=== PATIENT | male | born 1980 | race Caucasian/White ===

== ENCOUNTER 2019-05-09 00:19 | Inpatient (IN) | payer MEDICAID, OTHER ==
[~2019-05-09] VITALS: Ht 172.7 cm; Wt 69.2 kg
[~2019-05-09 00:19] MED LIST: PALI6 PO
[2019-05-09 03:06] LABS: ANION GAP 13 mmol/L (8-16); CALCIUM, TOTAL 9.7 mg/dL (8.8-10.5); CARBON DIOXIDE 25 mmol/L (22-29); CHLORIDE 102 mmol/L (98-107); CREATININE 1.11 mg/dL (0.60-1.30); GLOMERULAR FILTR. RATE CALC > 60 mL/min (>60); GLUCOSE,RANDOM 88 mg/dL (70-110); POTASSIUM 4.1 mmol/L (3.5-5.1); SODIUM SERUM 140 mmol/L (136-145); UREA NITROGEN, BLOOD 15 mg/dL (7-18)
[2019-05-09 03:08] LABS: BASOPHILS % (AUTO) 0.5 % (0.0-2.0); EOSINOPHILS % (AUTO) 1.1 % (1.0-6.0); HEMATOCRIT 47.5 % (41-53); HEMOGLOBIN 15.9 g/dL (13.5-17.5); LYMPHOCYTES # (AUTO) 2.1 K/uL (1.0-4.8); LYMPHOCYTES % (AUTO) 21.3 % (22.0-44.0); MEAN CORPUSCULAR HEMOGLOBIN 29.7 pg (26.0-34.0); MEAN CORPUSCULAR HGB CONC 33.4 G/dL (31.0-37.0); MEAN CORPUSCULAR VOLUME 89 fL (80-100); MONOCYTES # (AUTO) 1.2 K/uL (0.1-1.0); MONOCYTES % (AUTO) 11.8 % (2.0-9.0); NEUTROPHILS # (AUTO) 6.5 K/uL (1.8-7.7); NEUTROPHILS % (AUTO) 65.3 % (40.0-70.0); PLATELET COUNT (AUTO) 263 K/uL (150-450); RED BLOOD CELL COUNT(AUTO) 5.35 MIL/uL (4.50-5.90); RED CELL DISTRIBUTION WIDTH 13.7 % (11.5-14.5)
[2019-05-09 03:12] LABS: ALANINE AMINOTRANSFERASE 73 U/L (12-78); ALBUMIN 4.5 g/dL (3.4-5.0); ALKALINE PHOSPHATASE 115 U/L (46-116); ASPARTATE AMINOTRANSFERASE 59 U/L (15-37); TOTAL PROTEIN, SERUM 8.3 g/dL (6.4-8.2)
[2019-05-09] MEDS ORDERED: LORazepam 2 MG TABLET PO ONE (04:00)
[2019-05-09] MEDS ORDERED: DiphenhydrAMINE HCL 50 MG CAPSULE PO ONE (04:00)
[2019-05-09] MEDS ORDERED: HALOPERIDOL 5 MG TABLET PO ONE (04:00)
[2019-05-09 05:08] LABS: AMPHET/METH SCREEN,URINE POSITIVE (NEGATIVE); BARBITURATE SCREEN, URINE NEGATIVE (NEGATIVE); BENZODIAZEPINES SCREEN,URINE NEGATIVE (NEGATIVE); CANNABINOID SCREEN,URINE NEGATIVE (NEGATIVE); COCAINE SCREEN,URINE NEGATIVE (NEGATIVE); METHADONE SCREEN, URINE NEGATIVE (NEGATIVE); OPIATE SCREEN,URINE NEGATIVE (NEGATIVE); PHENCYCLIDINE SCREEN,URINE NEGATIVE (NEGATIVE)
[2019-05-09] MEDS: RisperiDONE 1 MG TABLET PO SCH ×2 (10:28→16:53)
[2019-05-09] MEDS ORDERED: PNEUMOCOCCAL VACCINE POLYVALENT 0.5 ML VIAL [PPSV23] IM ONE (11:15)
[2019-05-09 11:16] VITALS: BP 132/67
[2019-05-09 16:21] VITALS: BP 130/82
[2019-05-09] MEDS: LORazepam 2 MG TABLET PO PRN (20:16)
[2019-05-09] MEDS ORDERED: MAG HYDROX/AL HYDROX/SIMETH ES 30 ML SUSPENSION UDCUP PO PRN (22:30)
[2019-05-09] MEDS ORDERED: BACITRACIN 28.4 GM OINTMENT TP PRN (22:30)
[2019-05-09] MEDS ORDERED: BENZOCAINE/MENTHOL LOZENGE MM PRN (22:30)
[2019-05-09] MEDS ORDERED: ALBUTEROL SULFATE HFA 90 MCG/PUFF 8 GM INHALER IH PRN (22:30)
[2019-05-09] MEDS ORDERED: LOPERAMIDE HCL 2 MG CAPSULE PO PRN (22:30)
[2019-05-09] MEDS ORDERED: PETROLATUM,WHITE 28 GM JELLY TP PRN (22:30)
[2019-05-09] MEDS ORDERED: ONDANSETRON HCL 4 MG TABLET PO PRN (22:30)
[2019-05-09] MEDS ORDERED: ACETAMINOPHEN 325 MG TABLET PO PRN (22:30)
[2019-05-09] MEDS ORDERED: OMEPRAZOLE 20 MG CAPSULE PO PRN (22:30)
[2019-05-09] MEDS ORDERED: IBUPROFEN 600 MG TABLET PO PRN (22:30)
[2019-05-09] MEDS ORDERED: DOCUSATE SODIUM 100 MG CAPSULE PO PRN (22:30)
[2019-05-09] MEDS ORDERED: CloNIDine HCL 0.1 MG TABLET PO PRN (22:30)
[2019-05-09] MEDS ORDERED: MAGNESIUM HYDROXIDE SUSPENSION 30 ML UDCUP PO PRN (22:30)
[2019-05-10 01:14] VITALS: BP 112/84
[2019-05-10] MEDS: HALOPERIDOL 5 MG TABLET PO PRN ×2 (01:18→23:55)
[2019-05-10] MEDS: ZOLPIDEM TARTRATE 10 MG TABLET PO PRN ×2 (01:18→21:01)
[2019-05-10 08:13] VITALS: BP 135/92
[2019-05-10] MEDS: RisperiDONE 1 MG TABLET PO SCH ×2 (08:25→16:25)
[2019-05-10] MEDS: NICOTINE 21 MG/24 HOUR PATCH TD SCH (08:30)
[2019-05-10 08:54] LABS: CHOL/HDL RATIO 2.5 (4.2-7.3)
[2019-05-10] MEDS: LORazepam 2 MG TABLET PO PRN ×2 (09:16→15:08)
[2019-05-10 16:08] VITALS: BP 130/87
[2019-05-11 00:13] VITALS: BP 147/89
[2019-05-11 08:06] VITALS: BP 137/85
[2019-05-11] MEDS: RisperiDONE 1 MG TABLET PO SCH ×2 (08:18→16:37)
[2019-05-11] MEDS: NICOTINE 21 MG/24 HOUR PATCH TD SCH (08:22)
[2019-05-11] MEDS: LORazepam 2 MG TABLET PO PRN ×2 (09:36→14:43)
[2019-05-11 16:50] VITALS: BP 135/83
[2019-05-11] MEDS: ZOLPIDEM TARTRATE 10 MG TABLET PO PRN (20:46)
[2019-05-12] MEDS: HALOPERIDOL 5 MG TABLET PO PRN (00:14)
[2019-05-12 01:51] VITALS: BP 149/85
[2019-05-12 08:19] VITALS: BP 140/99
[2019-05-12] MEDS: RisperiDONE 1 MG TABLET PO SCH (08:23)
[2019-05-12] MEDS: LORazepam 2 MG TABLET PO PRN (08:23)
[2019-05-12] MEDS: NICOTINE 21 MG/24 HOUR PATCH TD SCH (08:28)
[2019-05-12] MEDS ORDERED: RISP2TAB76 PO (10:29)
[2019-05-12 12:00] VITALS: BP 111/73
== END 2019-05-12 13:15 | disposition home or self-care (01) | DRG 750 ==
LOC: EMS 00:19 → B2S 08:14
PROVIDERS: ADMIT Psychiatry & Neurology Psychiatry; ATTEND Psychiatry & Neurology Psychiatry
DX: F20.0 Paranoid schizophrenia (principal); R45.851 Suicidal ideations; Z59.0 Homelessness; F17.210 Nicotine dependence, cigarettes, uncomplicated; G47.00 Insomnia, unspecified; K59.00 Constipation, unspecified; F31.9 Bipolar disorder, unspecified; F41.9 Anxiety disorder, unspecified; Z91.5 Personal history of self-harm; Z56.0 Unemployment, unspecified
CPT/HCPCS: 99406; G0480

== ENCOUNTER 2019-07-13 20:38 | Inpatient (IN) | payer MEDICAID, OTHER ==
[~2019-07-13] VITALS: Ht 172.7 cm; Wt 63.5 kg
[~2019-07-13 20:38] MED LIST changes: -PALI6 PO; +RISP2TAB76 PO
[2019-07-13] MEDS ORDERED: PALI39DI IM (20:49)
[2019-07-13 21:24] LABS: HEMATOCRIT 52.2 % (41-53); HEMOGLOBIN 17.5 g/dL (13.5-17.5); MEAN CORPUSCULAR HEMOGLOBIN 30.1 pg (26.0-34.0); MEAN CORPUSCULAR HGB CONC 33.5 G/dL (31.0-37.0); MEAN CORPUSCULAR VOLUME 90 fL (80-100); PLATELET COUNT (AUTO) 163 K/uL (150-450); RED BLOOD CELL COUNT(AUTO) 5.81 MIL/uL (4.50-5.90)
[2019-07-13 21:35] LABS: ANION GAP 9 mmol/L (8-16); CALCIUM, TOTAL 9.5 mg/dL (8.8-10.5); CARBON DIOXIDE 29 mmol/L (22-29); CHLORIDE 99 mmol/L (98-107); CREATININE 0.83 mg/dL (0.60-1.30); GLOMERULAR FILTR. RATE CALC > 60 mL/min (>60); GLUCOSE,RANDOM 83 mg/dL (70-110); POTASSIUM 3.4 mmol/L (3.5-5.1); SODIUM SERUM 137 mmol/L (136-145); UREA NITROGEN, BLOOD 7 mg/dL (7-18)
[2019-07-13 21:40] LABS: AMPHET/METH SCREEN,URINE NEGATIVE (NEGATIVE); BARBITURATE SCREEN, URINE NEGATIVE (NEGATIVE); BENZODIAZEPINES SCREEN,URINE NEGATIVE (NEGATIVE); CANNABINOID SCREEN,URINE POSITIVE (NEGATIVE); COCAINE SCREEN,URINE NEGATIVE (NEGATIVE); METHADONE SCREEN, URINE NEGATIVE (NEGATIVE); OPIATE SCREEN,URINE NEGATIVE (NEGATIVE); PHENCYCLIDINE SCREEN,URINE NEGATIVE (NEGATIVE)
[2019-07-13 21:42] LABS: ALANINE AMINOTRANSFERASE 32 U/L (12-78); ALBUMIN 4.7 g/dL (3.4-5.0); ALKALINE PHOSPHATASE 167 U/L (46-116); ASPARTATE AMINOTRANSFERASE 39 U/L (15-37); BILIRUBIN,TOTAL 0.8 mg/dL (0.1-1.0); TOTAL PROTEIN, SERUM 8.3 g/dL (6.4-8.2)
[2019-07-13 22:16] LABS: BAND NEUTROPHILS % (MANUAL) 0 % (0-5)
[2019-07-13 22:17] LABS: BASOPHILS % (MANUAL) 2 % (0-2); EOSINOPHILS % (MANUAL) 13 % (1-6); LYMPHOCYTES % (MANUAL) 33 % (22-44); MONOCYTES % (MANUAL) 8 % (2-9); SEGMENTED NEUTROPHILS % 44 % (40-70)
[2019-07-14] MEDS ORDERED: HALOPERIDOL 5 MG TABLET PO ONE (00:15)
[2019-07-14] MEDS ORDERED: HALOPERIDOL 5 MG TABLET PO PRN (05:00)
[2019-07-14] MEDS ORDERED: 0.9% SODIUM CHLORIDE 10 ML SYRINGE IVP PRN (06:00)
[2019-07-14] MEDS ORDERED: ACETAMINOPHEN 325 MG TABLET PO PRN ×2 (06:00→08:45)
[2019-07-14] MEDS ORDERED: IBUPROFEN 600 MG TABLET PO PRN (08:45)
[2019-07-14] MEDS ORDERED: OMEPRAZOLE 20 MG CAPSULE PO PRN (08:45)
[2019-07-14] MEDS ORDERED: DOCUSATE SODIUM 100 MG CAPSULE PO PRN (08:45)
[2019-07-14] MEDS ORDERED: BENZOCAINE/MENTHOL LOZENGE MM PRN (08:45)
[2019-07-14] MEDS ORDERED: POTASSIUM CHLORIDE 20 MEQ ER TABLET PO ONE (08:45)
[2019-07-14] MEDS ORDERED: BACITRACIN 28.4 GM OINTMENT TP PRN (08:45)
[2019-07-14] MEDS ORDERED: ALBUTEROL SULFATE HFA 90 MCG/PUFF 8 GM INHALER IH PRN (08:45)
[2019-07-14] MEDS ORDERED: MAG HYDROX/AL HYDROX/SIMETH ES 30 ML SUSPENSION UDCUP PO PRN (08:45)
[2019-07-14] MEDS ORDERED: LOPERAMIDE HCL 2 MG CAPSULE PO PRN (08:45)
[2019-07-14] MEDS ORDERED: MAGNESIUM HYDROXIDE SUSPENSION 30 ML UDCUP PO PRN (08:45)
[2019-07-14] MEDS ORDERED: CloNIDine HCL 0.1 MG TABLET PO PRN (08:45)
[2019-07-14] MEDS ORDERED: ONDANSETRON HCL 4 MG TABLET PO PRN (08:45)
[2019-07-14] MEDS ORDERED: PETROLATUM,WHITE 28 GM JELLY TP PRN (08:45)
[2019-07-14 10:27] VITALS: BP 147/98
[2019-07-14 10:29] VITALS: BP 147/98
[2019-07-14] MEDS: LISINOPRIL 20 MG TABLET PO SCH (10:51)
[2019-07-14] MEDS: RisperiDONE 1 MG TABLET PO SCH ×2 (12:21→20:22)
[2019-07-14 16:36] VITALS: BP 108/60
[2019-07-15 00:54] VITALS: BP 121/62
[2019-07-15 07:53] LABS: ANION GAP 10 mmol/L (8-16); CALCIUM, TOTAL 8.9 mg/dL (8.8-10.5); CARBON DIOXIDE 26 mmol/L (22-29); CHLORIDE 103 mmol/L (98-107); CHOLESTEROL 119 mg/dL (131-200); CREATININE 0.92 mg/dL (0.60-1.30); GLOMERULAR FILTR. RATE CALC > 60 mL/min (>60); GLUCOSE,RANDOM 91 mg/dL (70-110); HDL CHOLESTEROL 60 mg/dL (40-60); LDL CHOL (CALC.) 47 mg/dL (0-130); POTASSIUM 3.8 mmol/L (3.5-5.1); SODIUM SERUM 139 mmol/L (136-145); THYROID STIMULATING HORMONE 1.79 uIU/mL (0.36-3.74); TRIGLYCERIDES 59 mg/dL (15-150); UREA NITROGEN, BLOOD 12 mg/dL (7-18)
[2019-07-15 08:11] VITALS: BP 115/60
[2019-07-15] MEDS: RisperiDONE 1 MG TABLET PO SCH ×2 (08:20→20:14)
[2019-07-15] MEDS: LISINOPRIL 20 MG TABLET PO SCH (08:20)
[2019-07-15 08:51] VITALS: BP 116/68
[2019-07-15] MEDS: LORazepam 2 MG TABLET PO PRN (14:59)
[2019-07-15 16:06] VITALS: BP 109/76
[2019-07-16 02:56] VITALS: BP 110/68
[2019-07-16] MEDS: LORazepam 2 MG TABLET PO PRN ×2 (02:59→09:36)
[2019-07-16 08:17] VITALS: BP 123/81
[2019-07-16] MEDS: RisperiDONE 1 MG TABLET PO SCH ×2 (08:47→20:05)
[2019-07-16] MEDS: LISINOPRIL 20 MG TABLET PO SCH (08:47)
[2019-07-16 16:04] VITALS: BP 111/69
[2019-07-16] MEDS: ZOLPIDEM TARTRATE 10 MG TABLET PO PRN (20:54)
[2019-07-17 00:50] VITALS: BP 120/81
[2019-07-17] MEDS: LORazepam 2 MG TABLET PO PRN ×2 (00:51→19:01)
[2019-07-17 08:21] VITALS: BP 126/79
[2019-07-17] MEDS: LISINOPRIL 20 MG TABLET PO SCH (08:36)
[2019-07-17] MEDS: RisperiDONE 1 MG TABLET PO SCH ×2 (08:36→20:07)
[2019-07-17 16:01] VITALS: BP 112/70
[2019-07-18 00:09] VITALS: BP 118/83
[2019-07-18] MEDS: LISINOPRIL 20 MG TABLET PO SCH (08:30)
[2019-07-18] MEDS: RisperiDONE 1 MG TABLET PO SCH (08:30)
[2019-07-18 08:31] VITALS: BP 129/62
[2019-07-18] MEDS: LORazepam 2 MG TABLET PO PRN (13:35)
[2019-07-18 16:19] VITALS: BP 109/70
[2019-07-18] MEDS: RisperiDONE 2 MG TABLET PO SCH (20:04)
[2019-07-18] MEDS: ZOLPIDEM TARTRATE 10 MG TABLET PO PRN (21:35)
[2019-07-19 03:51] VITALS: BP 115/69
[2019-07-19 08:21] VITALS: BP 102/57
[2019-07-19] MEDS: LISINOPRIL 20 MG TABLET PO SCH (09:00)
[2019-07-19] MEDS: RisperiDONE 2 MG TABLET PO SCH ×2 (09:44→20:30)
[2019-07-19] MEDS: BuPROPion HCL XL 150 MG ER TABLET PO SCH (12:20)
[2019-07-19] MEDS: LORazepam 2 MG TABLET PO PRN ×2 (12:26→18:03)
[2019-07-19 16:05] VITALS: BP 105/61
[2019-07-20 01:21] VITALS: BP 119/69
[2019-07-20 08:10] VITALS: BP_SYST 101; BP_SYST 127; BP_DIAS 52; BP_DIAS 83
[2019-07-20] MEDS: RisperiDONE 2 MG TABLET PO SCH (09:55)
[2019-07-20] MEDS: LISINOPRIL 20 MG TABLET PO SCH (09:55)
[2019-07-20] MEDS: BuPROPion HCL XL 150 MG ER TABLET PO SCH (09:55)
[2019-07-20 16:03] VITALS: BP 100/53
[2019-07-20] MEDS: LORazepam 2 MG TABLET PO PRN (16:53)
[2019-07-20] MEDS: RisperiDONE 3 MG TABLET PO SCH (20:18)
[2019-07-20] MEDS: ZOLPIDEM TARTRATE 10 MG TABLET PO PRN (22:43)
[2019-07-21 00:24] VITALS: BP 121/86
[2019-07-21 08:08] VITALS: BP 103/66
[2019-07-21] MEDS: BuPROPion HCL XL 150 MG ER TABLET PO SCH (08:28)
[2019-07-21] MEDS: LISINOPRIL 20 MG TABLET PO SCH (08:28)
[2019-07-21] MEDS: RisperiDONE 3 MG TABLET PO SCH ×2 (08:28→20:15)
[2019-07-21] MEDS: LORazepam 2 MG TABLET PO PRN ×3 (11:50→22:33)
[2019-07-21 16:12] VITALS: BP 100/60
[2019-07-21] MEDS: ZOLPIDEM TARTRATE 10 MG TABLET PO PRN (20:17)
[2019-07-22 06:34] VITALS: BP 105/67
[2019-07-22 08:16] VITALS: BP 105/65
[2019-07-22] MEDS: RisperiDONE 3 MG TABLET PO SCH (08:26)
[2019-07-22] MEDS: LISINOPRIL 20 MG TABLET PO SCH (08:26)
[2019-07-22] MEDS: BuPROPion HCL XL 150 MG ER TABLET PO SCH (08:26)
[2019-07-22] MEDS ORDERED: FOLIC ACID 1 MG TABLET PO SCH (09:00)
[2019-07-22] MEDS ORDERED: MULTIVITAMINS WITH MINERALS, THERAPEUTIC TABLET PO SCH (09:00)
[2019-07-22] MEDS ORDERED: THIAMINE HCL 100 MG TABLET PO SCH (09:00)
[2019-07-22] MEDS: LORazepam 2 MG TABLET PO PRN (09:51)
[2019-07-22] MEDS ORDERED: RISP3 PO (12:57)
[2019-07-22] MEDS ORDERED: BUPR-93 PO (12:57)
[2019-07-22] MEDS ORDERED: LISI-662 PO (12:57)
== END 2019-07-22 13:20 | disposition home or self-care (01) | DRG 750 ==
LOC: EMS 20:39 → B2S 07-14 08:03
PROVIDERS: ATTEND Psychiatry & Neurology Psychiatry
DX: F25.1 Schizoaffective disorder, depressive type (principal); R45.851 Suicidal ideations; Z59.0 Homelessness; F12.10 Cannabis abuse, uncomplicated; F19.10 Other psychoactive substance abuse, uncomplicated; F10.10 Alcohol abuse, uncomplicated; F41.9 Anxiety disorder, unspecified; E87.6 Hypokalemia; G47.00 Insomnia, unspecified; K59.00 Constipation, unspecified; Z71.41 Alcohol abuse counseling and surveillance of alcoholic; Z71.51 Drug abuse counseling and surveillance of drug abuser; Z91.5 Personal history of self-harm; Y90.9 Presence of alcohol in blood, level not specified
CPT/HCPCS: 84443; G0480

== ENCOUNTER 2019-12-12 01:06 | Emergency (ER) | payer MEDICAID, OTHER ==
[~2019-12-12] VITALS: Ht 172.7 cm; Wt 72.7 kg
[~2019-12-12 01:06] MED LIST changes: +BUPR-93 PO; +LISI-662 PO; -RISP2TAB76 PO; +RISP3 PO
[2019-12-12 02:41] LABS: ANION GAP 7 mmol/L (8-16); CALCIUM, TOTAL 9.5 mg/dL (8.8-10.5); CARBON DIOXIDE 31 mmol/L (22-29); CHLORIDE 99 mmol/L (98-107); CREATININE 0.75 mg/dL (0.60-1.30); GLOMERULAR FILTR. RATE CALC > 60 mL/min (>60); GLUCOSE,RANDOM 103 mg/dL (70-110); POTASSIUM 4.6 mmol/L (3.5-5.1); SODIUM SERUM 137 mmol/L (136-145); UREA NITROGEN, BLOOD 13 mg/dL (7-18)
[2019-12-12 02:50] LABS: ALANINE AMINOTRANSFERASE 45 U/L (12-78); ALBUMIN 4.8 g/dL (3.4-5.0); ALKALINE PHOSPHATASE 129 U/L (46-116); ASPARTATE AMINOTRANSFERASE 33 U/L (15-37); BILIRUBIN,TOTAL 1.1 mg/dL (0.1-1.0); TOTAL PROTEIN, SERUM 8.5 g/dL (6.4-8.2)
[2019-12-12 02:51] LABS: BASOPHILS % (AUTO) 0.3 % (0.0-2.0); EOSINOPHILS % (AUTO) 2.1 % (1.0-6.0); HEMOGLOBIN 15.8 g/dL (13.5-17.5); LYMPHOCYTES # (AUTO) 1.5 K/uL (1.0-4.8); MEAN CORPUSCULAR HEMOGLOBIN 29.9 pg (26.0-34.0); MEAN CORPUSCULAR HGB CONC 33.6 G/dL (31.0-37.0); MEAN CORPUSCULAR VOLUME 89 fL (80-100); MONOCYTES % (AUTO) 13.1 % (2.0-9.0); NEUTROPHILS % (AUTO) 64.5 % (40.0-70.0); PLATELET COUNT (AUTO) 158 K/uL (150-450); RED BLOOD CELL COUNT(AUTO) 5.27 MIL/uL (4.50-5.90)
[2019-12-12] MEDS ORDERED: AmLODIPine BESYLATE 5 MG TABLET PO ONE (03:45)
[2019-12-12] MEDS ORDERED: LORazepam 1 MG TABLET PO ONE (03:45)
[2019-12-12 05:30] VITALS: BP 156/97
== END 2019-12-12 05:50 | disposition home or self-care (01) ==
LOC: EMS 01:06
DX: F20.9 Schizophrenia, unspecified (principal); I10 Essential (primary) hypertension; F17.210 Nicotine dependence, cigarettes, uncomplicated; Z59.0 Homelessness; Z98.890 Other specified postprocedural states
CPT/HCPCS: 36415; 80053; 85025; 99284; G0480

== ENCOUNTER 2020-03-23 07:09 | Inpatient (IN) | payer MEDICAID, OTHER ==
[~2020-03-23] VITALS: Ht 170.2 cm; Wt 63.0 kg
[2020-03-23] MEDS ORDERED: LORazepam 2 MG/ML VIAL IM ONE (10:15)
[2020-03-23] MEDS ORDERED: HALOPERIDOL LACTATE 5 MG/ML VIAL IM ONE (10:15)
[2020-03-23] MEDS ORDERED: DiphenhydrAMINE HCL 50 MG/ML VIAL IM ONE (10:15)
[2020-03-23] MEDS ORDERED: ZOLPIDEM TARTRATE 10 MG TABLET PO PRN (10:45)
[2020-03-23] MEDS ORDERED: HALOPERIDOL 5 MG TABLET PO PRN (10:45)
[2020-03-23] MEDS: OLANZapine 10 MG TABLET PO SCH (20:42)
[2020-03-23 21:38] VITALS: BP 110/85
[2020-03-24 04:44] VITALS: BP 123/85
[2020-03-24] MEDS ORDERED: CloNIDine HCL 0.1 MG TABLET PO PRN (11:30)
[2020-03-24] MEDS ORDERED: LOPERAMIDE HCL 2 MG CAPSULE PO PRN (11:30)
[2020-03-24] MEDS ORDERED: MAGNESIUM HYDROXIDE SUSPENSION 30 ML UDCUP PO PRN (11:30)
[2020-03-24] MEDS ORDERED: GuaiFENesin/D-METHORPHAN [SUGAR-FREE] 200-20MG/10 ML SYRUP UDCUP PO PRN (11:30)
[2020-03-24] MEDS ORDERED: PETROLATUM,WHITE 28 GM JELLY TP PRN (11:30)
[2020-03-24] MEDS ORDERED: ONDANSETRON HCL 4 MG TABLET PO PRN (11:30)
[2020-03-24] MEDS ORDERED: MAG HYDROX/AL HYDROX/SIMETH ES 30 ML SUSPENSION UDCUP PO PRN (11:30)
[2020-03-24] MEDS ORDERED: DOCUSATE SODIUM 100 MG CAPSULE PO PRN (11:30)
[2020-03-24] MEDS ORDERED: ALBUTEROL SULFATE HFA 90 MCG/PUFF 8 GM INHALER IH PRN (11:30)
[2020-03-24] MEDS ORDERED: IBUPROFEN 400 MG TABLET PO PRN (11:30)
[2020-03-24] MEDS ORDERED: ACETAMINOPHEN 325 MG TABLET PO PRN (11:30)
[2020-03-24] MEDS ORDERED: NICOTINE 14 MG/24 HOUR PATCH TD PRN (11:30)
[2020-03-24 12:50] VITALS: BP 119/66
[2020-03-24 16:26] VITALS: BP 107/81
[2020-03-24] MEDS: LORazepam 2 MG TABLET PO PRN (20:10)
[2020-03-24] MEDS: OLANZapine 10 MG TABLET PO SCH ×2 (20:11→21:00)
[2020-03-25 00:42] VITALS: BP 112/79
[2020-03-25 08:41] LABS: BASOPHILS % (AUTO) 0.5 % (0.0-2.0); EOSINOPHILS % (AUTO) 5.5 % (1.0-6.0); HEMATOCRIT 39.7 % (41-53); HEMOGLOBIN 13.6 g/dL (13.5-17.5); LYMPHOCYTES # (AUTO) 1.1 K/uL (1.0-4.8); MEAN CORPUSCULAR HEMOGLOBIN 30.8 pg (26.0-34.0); MEAN CORPUSCULAR HGB CONC 34.2 G/dL (31.0-37.0); MEAN CORPUSCULAR VOLUME 90 fL (80-100); MONOCYTES # (AUTO) 0.4 K/uL (0.1-1.0); NEUTROPHILS # (AUTO) 1.7 K/uL (1.8-7.7); PLATELET COUNT (AUTO) 106 K/uL (150-450); RED BLOOD CELL COUNT(AUTO) 4.42 MIL/uL (4.50-5.90); RED CELL DISTRIBUTION WIDTH 14.3 % (11.5-14.5)
[2020-03-25 08:52] VITALS: BP_SYST 100; BP_SYST 126; BP_DIAS 64; BP_DIAS 86
[2020-03-25 09:12] LABS: HEMOGLOBIN A1C 4.8 % (3.8-5.6)
[2020-03-25 09:16] LABS: ALANINE AMINOTRANSFERASE 40 U/L (12-78); ALBUMIN 3.6 g/dL (3.4-5.0); ALKALINE PHOSPHATASE 114 U/L (46-116); ANION GAP 10 mmol/L (8-16); ASPARTATE AMINOTRANSFERASE 26 U/L (15-37); BILIRUBIN,TOTAL 0.6 mg/dL (0.1-1.0); CALCIUM, TOTAL 8.6 mg/dL (8.8-10.5); CARBON DIOXIDE 27 mmol/L (22-29); CHLORIDE 102 mmol/L (98-107); CHOL/HDL RATIO 1.6 (4.2-7.3); CHOLESTEROL 107 mg/dL (131-200); CREATININE 0.75 mg/dL (0.60-1.30); GLOMERULAR FILTR. RATE CALC > 60 mL/min (>60); GLUCOSE,RANDOM 93 mg/dL (70-110); HDL CHOLESTEROL 65 mg/dL (40-60); LDL CHOL (CALC.) 33 mg/dL (0-130); POTASSIUM 3.9 mmol/L (3.5-5.1); SODIUM SERUM 139 mmol/L (136-145); THYROID STIMULATING HORMONE 2.97 uIU/mL (0.36-3.74); TOTAL PROTEIN, SERUM 6.5 g/dL (6.4-8.2); TRIGLYCERIDES 47 mg/dL (15-150); UREA NITROGEN, BLOOD 16 mg/dL (7-18)
[2020-03-25] MEDS: SERTRALINE HCL 50 MG TABLET PO SCH (09:35)
[2020-03-25 16:19] VITALS: BP 131/86
[2020-03-25] MEDS: LORazepam 2 MG TABLET PO PRN (17:10)
[2020-03-25] MEDS: OLANZapine 10 MG TABLET PO SCH ×3 (21:00→21:33)
[2020-03-26 00:15] VITALS: BP 128/80
[2020-03-26] MEDS: SERTRALINE HCL 50 MG TABLET PO SCH (08:55)
[2020-03-26 09:20] VITALS: BP 118/86
[2020-03-26] MEDS ORDERED: OLAN10TA3 PO (14:38)
[2020-03-26] MEDS ORDERED: SERT50TA12 PO (14:38)
[2020-03-26 16:41] VITALS: BP 127/79
== END 2020-03-26 18:25 | disposition home or self-care (01) | DRG 750 ==
LOC: EMS 07:10 → B2S 20:30
PROVIDERS: ADMIT Psychiatry & Neurology Child & Adolescent Psychiatry; ATTEND Psychiatry & Neurology Child & Adolescent Psychiatry
DX: F25.1 Schizoaffective disorder, depressive type (principal); R45.851 Suicidal ideations; Z59.0 Homelessness; F10.10 Alcohol abuse, uncomplicated; F12.90 Cannabis use, unspecified, uncomplicated; F17.200 Nicotine dependence, unspecified, uncomplicated; G47.00 Insomnia, unspecified; I10 Essential (primary) hypertension; K59.00 Constipation, unspecified
CPT/HCPCS: 83036; 84443; J1200; J1630; J2060

== ENCOUNTER 2020-06-21 04:24 | Emergency (ER) | payer MEDICAID, OTHER ==
[~2020-06-21 04:24] MED LIST changes: -BUPR-93 PO; -LISI-662 PO; +OLAN10TA3 PO; -RISP3 PO; +SERT50TA12 PO
== END 2020-06-21 06:08 | disposition left against medical advice (07) ==
LOC: EMS 04:24
DX: Z00.00 Encounter for general adult medical examination without abnormal findings (principal); Z53.21 Procedure and treatment not carried out due to patient leaving prior to being seen by health care provider

== ENCOUNTER 2020-06-21 06:36 | Emergency (ER) | payer OTHER ==
[~2020-06-21] VITALS: Ht 172.7 cm; Wt 63.6 kg
[2020-06-21 06:41] VITALS: BP 130/95
== END 2020-06-21 08:54 | disposition home or self-care (01) ==
LOC: EMS 06:36
DX: F20.9 Schizophrenia, unspecified (principal); F19.10 Other psychoactive substance abuse, uncomplicated; I10 Essential (primary) hypertension; F12.90 Cannabis use, unspecified, uncomplicated; F17.210 Nicotine dependence, cigarettes, uncomplicated; Z59.0 Homelessness
CPT/HCPCS: 99406